=== PATIENT | female | born 1980 | race Caucasian/White ===

== ENCOUNTER 2025-10-10 13:21 | Emergency (ER) | payer OTHER, MEDICAID ==
[~2025-10-10] VITALS: Ht 172.7 cm; Wt 132.5 kg
[2025-10-10 14:46] LABS: KETONE, URINE AUTO RFX TRACE mg/dL (NEGATIVE); NITRITE, URINE AUTO RFX NEGATIVE (NEGATIVE); RBC, URINE AUTO RFX 1 /HPF (0-3); SQUAM EPITHELIAL CELL UR AURFX 2 /HPF (0-6)
[2025-10-10 14:48] LABS: LEUKOCYTE ESTERASE UR AUTO RFX 1+ (NEGATIVE); WBC, URINE AUTO RFX 138 /HPF (0-3)
[2025-10-10] MEDS ORDERED: HumuLIN R (REGULAR) INSULIN (NovoLIN R) **100 U/ML** PER UNIT SC STA (14:56)
[2025-10-10 15:11] LABS: VENOUS BASE EXCESS 0.3 (-2.0-2.0); VENOUS HCO3 26.3 MMOL/L (23.0-27.0); VENOUS O2 SATURATION 62.5 % (60.0-80.0); VENOUS PARTIAL PRESSURE CO2 48.9 mmHg (38.0-50.0); VENOUS PARTIAL PRESSURE O2 34.2 mmHg (30.0-50.0); VENOUS PH 7.348 UNITS (7.330-7.430); VENOUS STANDARD HCO3 24.2 MMOL/L; VENOUS TOTAL CO2 27.8 MMOL/L (24.0-28.0)
[2025-10-10 15:17] LABS: BASO # 0.1 10^3/uL (0.0-0.2); BASO % 1.1 % (0.0-1.0); EOS # 0.1 10^3/uL (0.0-0.5); EOS % 2.3 % (0.0-3.0); LYMPH # 1.7 10^3/uL (1.5-5.0); LYMPH % 30.3 % (24.0-44.0); MONO # 0.3 10^3/uL (0.0-0.8); MONO % 6.0 % (2.0-8.0); NEUTROPHILS # 3.4 10^3/uL (1.5-8.5); NEUTROPHILS % 59.9 % (36.0-66.0); PLATELET COUNT, AUTOMATED 194 10^3/uL (150-450)
[2025-10-10] MEDS: NS (Normal Saline) 0.9% 1,000 ML IV ONE (15:23)
[2025-10-10] MEDS: HumuLIN R (REGULAR) INSULIN (NovoLIN R) **100 U/ML** PER UNIT IV ONE (15:25)
[2025-10-10 15:39] LABS: OSMOLALITY SERUM 298 MOSM/KG (275-295)
[2025-10-10 15:43] LABS: ACETONE/KETONE 0.25 MMOL/L (0.02-0.27)
[2025-10-10 15:45] LABS: ESTIMATED AVERAGE GLUCOSE 252.0 MG/DL (60-110)
[2025-10-10 16:04] LABS: CK-MB VALUE MASS < 1.0 NG/ML (<3.6)
[2025-10-10 16:06] LABS: ALT/SGPT 20 U/L (7.0-40); AST/SGOT 19 U/L (<34); CALCIUM LEVEL 7.8 MG/DL (8.5-10.1); CARBON DIOXIDE LEVEL 26 MMOL/L (20-31); CHLORIDE LEVEL 104 MMOL/L (98-107); CPK CREATINE PHOSPHOKINASE 47 U/L (34-145); CREATININE FOR GFR 0.45 MG/DL (0.55-1.30); GLOMERULAR FILTRATION RATE > 90.0 (>58); MAGNESIUM LEVEL 1.6 MG/DL (1.8-2.4); POTASSIUM SERUM 4.1 MMOL/L (3.5-5.1); SODIUM LEVEL 141 MMOL/L (136-145)
[2025-10-10] MEDS: GASTROGRAFIN SOLUTION 30ML PO SCH (16:22)
[2025-10-10] MEDS ORDERED: ISOVUE-370 76% 100 ML VIAL As Ordered ONE (17:08)
[2025-10-10] MEDS: MAG SULF 1GM/100ML (MAG RUN) 1 GM in IV 1 EA IV ONE (18:37)
[2025-10-10] MEDS: PHENAZOPYRIDINE 100 MG TAB PO ONE (18:38)
[2025-10-10] MEDS: NITROFURANTOIN 100 MG CAP PO ONE (18:38)
[2025-10-10] MEDS ORDERED: INSULANT SC (19:31)
[2025-10-10] MEDS ORDERED: PYRI1TAB5 PO (19:31)
[2025-10-10] MEDS ORDERED: NITR-67 PO (19:31)
[2025-10-10 19:56] VITALS: BP 150/90; TEMP 97.3; O2SAT 99
== END 2025-10-10 20:03 | disposition home or self-care (01) ==
LOC: EDBD 13:21 → M ED 13:21
DX: N39.0 Urinary tract infection, site not specified (principal); E11.65 Type 2 diabetes mellitus with hyperglycemia; F43.10 Post-traumatic stress disorder, unspecified; E78.5 Hyperlipidemia, unspecified; K76.0 Fatty (change of) liver, not elsewhere classified; E28.2 Polycystic ovarian syndrome; Z88.0 Allergy status to penicillin; Z88.1 Allergy status to other antibiotic agents; Z88.8 Allergy status to other drugs, medicaments and biological substances; Z79.4 Long term (current) use of insulin; Z79.899 Other long term (current) drug therapy; Z98.84 Bariatric surgery status; Z53.9 Procedure and treatment not carried out, unspecified reason
CPT/HCPCS: 71045; 74177; 80047; 80048; 80076; 81001; 82010; 82550; 82553; 82803; 83036; 83690; 83735; 83930; 84484; 85025; 87086; 87486; 87581; 87633; 87798; 87880; 93005; 93041; 94760; 96365; 96375; 99285; J1815; J3475; Q9963; Q9967

== ENCOUNTER 2025-10-23 12:17 | Emergency (ER) | payer OTHER, SELFPAY ==
[~2025-10-23] VITALS: Ht 172.7 cm; Wt 130.6 kg
[~2025-10-23 12:17] MED LIST: INSULANT SC; NITR-67 PO; PYRI1TAB5 PO
[2025-10-23 14:44] LABS: KETONE, URINE AUTO RFX TRACE mg/dL (NEGATIVE); LEUKOCYTE ESTERASE UR AUTO RFX NEGATIVE (NEGATIVE); MUCUS, URINE RFX SMALL (NEGATIVE); NITRITE, URINE AUTO RFX NEGATIVE (NEGATIVE); RBC, URINE AUTO RFX 1 /HPF (0-3); SQUAM EPITHELIAL CELL UR AURFX 3 /HPF (0-6); WBC, URINE AUTO RFX 2 /HPF (0-3)
[2025-10-23] MEDS ORDERED: LIDO1ADH93 TOP (15:20)
[2025-10-23] MEDS ORDERED: CYCL-707 PO (15:20)
[2025-10-23 15:28] VITALS: BP 137/84; TEMP 97; O2SAT 99
== END 2025-10-23 15:29 | disposition home or self-care (01) ==
LOC: M ED 12:17
DX: M54.31 Sciatica, right side (principal); Z98.84 Bariatric surgery status; Z88.0 Allergy status to penicillin; Z88.1 Allergy status to other antibiotic agents; Z88.8 Allergy status to other drugs, medicaments and biological substances; Z79.899 Other long term (current) drug therapy; Z79.4 Long term (current) use of insulin